=== PATIENT | female | born 1985 | race Asian ===

== ENCOUNTER 2017-08-30 14:14 | Emergency (ER) | payer SELFPAY ==
--- NOTE | 2017-08-30 15:00 | ED Physician Chart ---
ED Chief Complaint/HPI - Patient Information Date Seen:: 08/30/17 Time Seen:: 15:30 Chief Complaint:: chest pressure History of Present Illness:: At noon patient developed substernal and left-sided chest pressure which radiated down her left arm. Patient had no pain but the pressure sensation was a 7 on a scale 1-10. The pressure sensation was nonpleuritic. Patient has had no recent upper respiratory tract infection or cough. Patient's had no prior episodes of similar pressure sensation. Paramedics EKG showed a normal sinus rhythm with a rate of [address] or T changes. Allergies:: Allergies Allergy/AdvReac Type Severity Reaction Status Date / Time No Known Allergies Allergy Verified 08/30/17 14:35 Vitals:: Vital Signs - 8 hr 08/30/17 08/30/17 14:35 14:50 Temp 98.2 F 98.6 F HR 90 84 RR 16 13 BP 124/86 109/69 O2 Sat % 97 97 Historian:: Patient Review:: Nurse's Note Reviewed ED Review of Systems - Review of Systems General/Constitutional: No fever, No chills Skin: No skin lesions Head: No headache, No light-headedness Eyes: No loss of vision ENT: No earache, No sore throat, No tinnitus Neck: No neck pain Cardio Vascular: other (chest pressure) Pulmonary: No SOB GI: No nausea, No vomiting, No diarrhea G/U: No dysuria Musculoskeletal: No bone or joint pain Endocrine: No polyuria Psychiatric: No prior psych history Hematopoietic: No bruising ED Past Medical History - Past Medical History Past Medical History: No significant medical hx Family History: Diabetes Melitus Social History: Non Smoker, No Alcohol Surgical History: Cholecystectomy Psychiatricy History: None Medication: None Family Medical History - Family Member Mother Hx Family Cancer: No Hx Family Coronary Artery Disease: No Hx Family Congestive Heart Failure: No Hx Family Stroke: No Hx Family Seizures: No Hx Family Dementia: No Hx Family HIV: No Hx Family COPD: No ED Physical Exam - Physical Examination General/Constitutional: Well-developed, well-nourished, Alert, No distress Head: Atraumatic Eyes: Lids, conjuctiva normal, PERRL Skin: Nl inspection, No rash, No skin lesions, No ecchymosis ENMT: External ears, nose nl, TM canals nl, Nasal exam nl, Lips, teeth, gums nl , Oropharynx nl, Tonsils nl Neck: No nuchal rigidity Respiratory: Nl effort/Exclusion, Clear to Auscultation, No Wheeze/Rhonchi/Rales Cardio Vascular: RRR GI: No tenderness/rebounding/guarding, No organomegaly, No hernia, Normal BS's, Nondistended, No mass/bruits : No CVA tenderness Extremities: Normal digits & nails Neuro/Psych: No focal deficits Misc: No paraspinal tenderness ED Labs/Radiology/EKG Results - Lab Results Comments:: Laboratory Results - last 24 hr 08/30/17 03:05 Troponin I < 0.01 L - EKG Interpretations Rate & Rhythm: NSR; rate 82; Q waves in V1 and V2 ED Assessment - Assessment General Assessment: doubt that patient had a previous septal MO as stated on the EKG print-out ED Septic Shock - . Is Septic Shock (SBP<90, OR Lactate>4 mmol\L) present?: No - <6hrs of presentation: Vital Signs: Vital Signs - 8 hr 08/30/17 08/30/17 14:35 14:50 Temp 98.2 F 98.6 F HR 90 84 RR 16 13 BP 124/86 109/69 O2 Sat % 97 97 ED Reassessment (Disposition) - Reassessment Reassessment Condition:: Improved - Diagnosis Diagnosis:: Atypical chest pressure - Aftercare/Follow up Instructions Aftercare/Follow-Up Instructions:: Refer to Discharge Instructions - Patient Disposition Discharge/Transfer:: Home Condition at Disposition:: Stable, Unchanged
== END 2017-08-30 16:16 | disposition home or self-care (01) ==
LOC: ER 14:14
DX: R07.89 Other chest pain (principal); Z90.49 Acquired absence of other specified parts of digestive tract
CPT/HCPCS: 36415-UA; 84484-TC; 93005